=== PATIENT | male | born 1960 | race Caucasian/White ===

== ENCOUNTER 2022-06-18 07:22 | Inpatient (IN) | payer BC, SELFPAY ==
[2022-06-18] VITALS (16 sets, daily range): BP systolic 91–163; BP diastolic 61–99; PULSE 54–77; RESP 12–98; TEMP 36.3–36.9; O2SAT 19–100
--- NOTE | ~2022-06-18 | XR_ITS ---
XR chest 1V portable 06/18/2022 07:52 Indication: Chest pain and shortness of breath Procedure: AP portable chest Comparison: 08/21/2017 Findings: Chronic left basilar infiltrates. Stable cardiomediastinal silhouette allowing for techniqu e. No acute focal pneumonia, edema, pleural effusion or pneumothorax. Impression: 1: Stable chronic left basilar infiltrates, most likely atelectasis/scarring. Reviewed, dictated and finalized at location A. TIC PHYSIOTHERAPIST Impression: 1: Stable chronic left basilar infiltrates, most likely atelectasis/scarring.
--- NOTE | 2022-06-18 07:25 | ECG_ITS ---
Measurements Intervals [place] Rate: 51 P: 19 [place]: 157 QRS: -12 QRSD: 106 T: 27 QT: 391 QTc: 363 Interpretive Statements SINUS BRADYCARDIA WITH OCCASIONAL SUPRAVENTRICULAR PREMATURE COMPLEXES ST ELEVATION, CONSIDER INFERIOR INJURY ACUTE CO ABNORMAL ECG NO PREVIOUS ECG AVAILABLE FOR COMPARISON Electronically Signed On 06-18-2022 14:48:37 WIRE BOUND BOX MACHINE HELPER by Kyle Manzanares M.D.
[2022-06-18] MEDS: ASPIRIN 81 MG CHEWABLE TABLET 324 MG PO (07:51)
[2022-06-18] MEDS: MORPHINE SULFATE (*CRX) 4 MG/ML INJ (07:56)
[2022-06-18 07:59] LABS: Alanine Aminotransferase 24 U/L (6-50); Albumin Level 4.3 g/dL (3.5-5.1); Alkaline Phosphatase 64 U/L (38-126); Anion Gap 5 mmol/L (8-16); Aspartate Amino Transferase 25 U/L (17-59); Bilirubin,Total 1.1 mg/dL (0.2-1.3); Blood Urea Nitrogen 20 mg/dL (9-20); Calcium 8.5 mg/dL (8.4-10.2); Carbon Dioxide 28 mmol/L (22-30); Chloride 108 mmol/L (98-107); Estimated CRCL calculation 92 ml/min; Estimated Glomerular Filt Rate > 60; Glucose 140 mg/dL (65-110); Potassium 3.8 mmol/L (3.4-5.0); Sodium 141 mmol/L (137-145)
[2022-06-18 08:02] LABS: Prothrombin Time 12.3 Seconds (11.1-14.7)
[2022-06-18 08:07] LABS: Lipase 146 U/L (23-300)
[2022-06-18 08:11] LABS: Troponin I 0.122 ng/mL (0.000-0.034)
[2022-06-18 08:14] LABS: Basophils Percent Auto 0.5 % (0.2-1.2); Eosinophils Absolute Auto 0.3 K/mm3 (0-0.3); Hemoglobin 14.8 g/dL (14.0-18.0); Immature Granulocyte Absolute 0.03 K/mm3 (0.00-0.031); Immature Granulocyte Percent A 0.4 % (0-0.5); Lymphocytes Absolute Auto 3.26 K/mm3 (0.9-3.2); Lymphocytes Percent Auto 39.7 % (18.3-44.2); Mean Corpuscular HGB Conc 33.6 g/dl (32-36); Mean Corpuscular Hemoglobin 31.5 pg (26-34); Mean Corpuscular Volume 93.6 fl (80-100); Mean Platelet Volume 9.8 fl (7.4-10.4); Monocytes Absolute Auto 0.7 K/mm3 (0.1-0.6); Monocytes Percent Auto 8.2 % (2.6-8.5); Neutrophils Absolute Auto 3.9 K/mm3 (1.3-6.7); Neutrophils Percent Auto 47.2 % (45.5-73.1); Platelet Count Result 227 k/mm3 (150-375); Red Cell Distribution Width 13.5 % (11.5-14.5); White Blood Count 8.2 K/mm3 (4.5-10.0)
--- NOTE | 2022-06-18 08:23 | ED.CHESTPAIN ---
HPI - Chest Pain General Chief Complaint: Chest Pain Stated Complaint: chest pressure, difficulty breathing Time Seen by Provider: 06/18/22 07:27 History of Present Illness HPI narrative: Patient is a 61-year-old male who presents ER with chest pain. Woke him up at 6:45 AM. Pressure and stabbing center of his chest. No radiation to the shoulder or jaw. Mild shortness of breath. No diaphoresis. Has no nausea or vomiting. No history of [place]/hypertension/diabetes. Denies fevers or chills or sweats. Reports he noticed some exertional fatigue 2 days ago but otherwise has not been having chest pain. EKG in triage shows acute STEMI. Related Data Home Medications Medication Instructions Recorded Confirmed fexofenadine 60 mg-pseudoephedrine tablet PO 06/18/22 ER 120 mg tablet,ext.release,12 hr (Amada-D 12 Hour) Allergies Allergy/AdvReac Type Severity Reaction Status Date / Time levofloxacin [From Levaquin] Allergy Rash Verified 06/18/22 07:55 Sulfa (Sulfonamide Allergy Rash Verified 06/18/22 07:55 Antibiotics) Review of Systems Review of Systems: All systems reviewed & are unremarkable except as noted in HPI and below Constitutional: Constitutional: Denies chills, Denies fatigue and Denies fever(s) ENT: Denies nasal congestion and Denies sore throat Cardiovascular: Cardiovascular: Reports chest pain, Denies rapid heart rate and Denies radiating jaw, neck or arm pain Respiratory: Respiratory: Denies cough, Reports dyspnea and Denies wheezing Gastrointestinal: Gastrointestinal: Denies abdominal pain, Denies nausea and Denies vomiting PMFSH Past Medical History Medical History (Updated 06/18/22 @ 08:34 by Mehran Thapa MD) Healthy adult male Surgical History Surgical History (Updated 06/18/22 @ 08:34 by Mehran Thapa MD) No pertinent past surgical history Exam Narrative: GENERAL: Well-appearing, well-nourished, and in no acute distress. HEAD: Normocephalic, atraumatic. ENT: Mucous membranes moist. CHEST: Clear to auscultation. No respiratory distress. HEART: Bradycardic and regular. Normal peripheral pulses. ABDOMEN: Soft, nontender, nondistended. EXTREMITIES: Normal range of motion. No edema. SKIN: Warm, dry, no rash. NEURO: Alert and oriented x3. PSYCH: Normal mood and affect. Course Course Emergency Course: 0745: STEMI activated. I spoke with Dr. Arauz who is on his way to take care of the patient. He does not wish for the patient to receive Brilinta. Patient will receive oral aspirin and IV heparin. I have also contacted the patient's to inform her of the diagnosis and treatment plan. 0828: Cardiac cath team has arrived and taken patient to the cath suite. Patient with mild improvement of discomfort with morphine 2 mg IV. Vital Signs Vital signs: Vital Signs Temperature 97.4 F L 06/18/22 07:27 Pulse Rate 57 L 06/18/22 07:27 Respiratory Rate 19 06/18/22 07:27 Blood Pressure 151/91 H 06/18/22 07:27 Pulse Oximetry 100 06/18/22 07:27 Oxygen Delivery Room Air 06/18/22 07:27 Temperature 97.4 F L 06/18/22 07:27 Pulse Rate 57 L 06/18/22 08:22 Respiratory Rate 17 06/18/22 08:22 Blood Pressure 142/99 H 06/18/22 08:22 Pulse Oximetry 100 06/18/22 08:22 Oxygen Delivery Room Air 06/18/22 07:27 MDM - Chest Pain Lab Data 06/18/22 07:41 06/18/22 07:41 Labs: Lab Results 06/18/22 06/18/22 06/18/22 Range/Units 07:41 07:41 07:41 WBC 8.2 (4.5-10.0) K/mm3 RBC 4.70 (4.6-6.20) M/mm3 Hgb 14.8 (14.0-18.0) g/dL Hct 44.0 (42.0-52.0) % MCV 93.6 (80-100) fl MCH 31.5 (26-34) pg MCHC 33.6 (32-36) g/dl RDW 13.5 (11.5-14.5) % Plt Count 227 (150-375) k/mm3 MPV 9.8 (7.4-10.4) fl Immature Gran % (Auto) 0.4 (0-0.5) % Neut % (Auto) 47.2 (45.5-73.1) % Lymph % (Auto) 39.7 (18.3-44.2) % [place] % (Auto) 8.2 (2.6-8.5) % Eos % (Auto) 4.0 (0
--- NOTE | 2022-06-18 08:25 | WPDMODSED ---
Moderate Sedation Note-Pt Data Patient Data Diagnosis: Inferior STEMI Present Complaint: chest pain Procedure to be performed/Plan: cardiac catheterization with stenting Allergies Allergy/AdvReac Type Severity Reaction Status Date / Time levofloxacin [From Levaquin] Allergy Rash Verified 06/18/22 07:55 Sulfa (Sulfonamide Allergy Rash Verified 06/18/22 07:55 Antibiotics) Home Medications Medication Instructions Recorded Confirmed Type fexofenadine 60 mg-pseudoephedrine tablet PO 06/18/22 History ER 120 mg tablet,ext.release,12 hr (Amada-D 12 Hour) Sedation/Anesthesia: No previous sedation/anesthesia problems (including family history). Mod Sed Physical Exam Physical Exam Pre Procedural Exam: Normal: Appearance, Eyes, Ears, Nose, Neck, Throat, Airway, Lungs, Heart Size, Heart Rate, Heart Rhythm, Neuro Exam, Abdomen, Liver, Kidneys, Spleen, Breasts, Genitalia, Extremities and Skin Hours since solid foods: 8 Hours since liquid intake: 8 Mallampati Classification: class 1 Internal Medicine - PN: Obj Da Vital Signs Vital Signs: Vital Signs - 24 hr 06/18/22 07:27 06/18/22 07:56 06/18/22 07:56 Temperature 36.3 C L Pulse Rate 57 L 65 61 Respiratory Rate 19 19 Blood Pressure 151/91 H 154/94 H Pulse Oximetry 100 100 Oxygen Delivery Room Air 06/18/22 08:22 Temperature Pulse Rate 57 L Respiratory Rate 17 Blood Pressure 142/99 H Pulse Oximetry 100 Oxygen Delivery Meds/Results Radiology Results: ITS Impressions Chest X-Ray 06/18/22 07:57 Impression: 1: Stable chronic left basilar infiltrates, most likely atelectasis/scarring. Labs 06/18/22 07:41 06/18/22 07:41 Labs: Laboratory Results - last 24 hr 06/18/22 06/18/22 06/18/22 07:41 07:41 07:41 WBC 8.2 RBC 4.70 Hgb 14.8 Hct 44.0 MCV 93.6 MCH 31.5 MCHC 33.6 RDW 13.5 Plt Count 227 MPV 9.8 Immature Gran % (Auto) 0.4 Neut % (Auto) 47.2 Lymph % (Auto) 39.7 [place] % (Auto) 8.2 Eos % (Auto) 4.0 Baso % (Auto) 0.5 Lymph # (Auto) 3.26 H [place] # (Auto) 0.7 H Eos # (Auto) 0.3 Baso # (Auto) 0.0 Abs Immat Gran (auto) 0.03 Absolute Neuts (auto) 3.9 Absolute Nucleated RBC 0.0 Nucleated RBC % 0.0 PT 12.3 INR 1.0 APTT 24.0 Sodium 141 Potassium 3.8 Chloride 108 H Carbon Dioxide 28 Anion Gap 5 L BUN 20 Creatinine 0.80 Estim Creat Clear Calc 92 Estimated GFR > 60 Glucose 140 H Calcium 8.5 Total Bilirubin 1.1 AST 25 ALT 24 Alkaline Phosphatase 64 Troponin I 0.122 H* Total Protein 7.0 Albumin 4.3 Lipase 146 ASA Classification/Sedation ASA Classification/Sedation ASA Class: I Emergent: No Risks: Risks, benefits and alternatives explained and patient/family accepted plan for sedation. Patient re-evaluated immediately prior to sedation.
--- NOTE | 2022-06-18 08:26 | WPDHPUPDATE1 ---
History and Physical Update Update Date/Time: 06/18/22 08:26 History and Physical has been reviewed, including an updated exam of the patient. There are NO changes in the patient's condition. Risks, benefits, and alternatives have been discussed and questions answered. Patient agrees to proceed with procedure.
--- NOTE | 2022-06-18 08:26 | PM.IMHP ---
H&P: HPI History of Present Illness Date/Time: date of kckqowh75/19/23 08:26 Chief Complaint: chest pain Narrative: this 61 year patient significant past medical history except that his dad had myocardial infarction at the same age primary started about 645 this morning have a central chest heaviness. mention that was having shortness of breath and some chest pressure then intermittent increasing chest pressure Sunday but this morning was constant . he does not smoke cigarettes. he drinks alcohol occasions. EKG showed ST-elevation inferior leads with reciprocal changes in leads 1 and aVL. His initial troponin 0.12 to. Electrolytes and hemoglobin normal. Review of Systems Review of Systems: All systems reviewed & are unremarkable except as noted in HPI and below Constitutional: Constitutional: Denies chills, Denies fatigue, Denies fever(s), Denies headache(s) and Denies snoring Eyes: Eyes: Denies eye discharge and Denies loss of vision ENT: Denies dizziness, Denies headache(s), Denies nasal discharge and Denies sore throat Cardiovascular: Cardiovascular: Reports as per HPI, Reports chest pain, Denies syncope, Denies rapid heart rate, Denies leg edema, Reports dyspnea, Reports dyspnea on exertion, Denies orthopnea and Denies paroxysmal nocturnal dyspnea Respiratory: Respiratory: Denies chest congestion, Denies cough, Reports dyspnea, Reports dyspnea on exertion, Denies snoring and Denies wheezing Gastrointestinal: Gastrointestinal: Denies abdominal pain, Denies diarrhea, Denies nausea and Denies vomiting Genitourinary: Genitourinary: Denies hematuria, Denies dysuria, Denies flank pain and Denies urinary frequency Musculoskeletal: Musculoskeletal: Denies myalgias, Denies arthralgias and Denies joint swelling Neurologic: Denies Abnormal speech present, Denies dizziness, Denies syncope, Denies headache(s), Denies focal weakness and Denies loss of vision Psychiatric: Psychiatric: Denies anxiety and Denies depression Endocrine: Endocrine: Denies cold intolerance, Denies fatigue and Denies heat intolerance Hematologic/Lymphatic: Hematologic/Lymphatic: Denies easy bleeding and Denies easy bruising Allergic/Immunologic: Allergic/Immunologic: Denies urticaria and Denies wheezing Meds Home Medications and Allergies Home Medications Medication Instructions Recorded Confirmed Type fexofenadine 60 mg-pseudoephedrine tablet PO 06/18/22 History ER 120 mg tablet,ext.release,12 hr (Amada-D 12 Hour) Allergies Allergy/AdvReac Type Severity Reaction Status Date / Time levofloxacin [From Levaquin] Allergy Rash Verified 06/18/22 07:55 Sulfa (Sulfonamide Allergy Rash Verified 06/18/22 07:55 Antibiotics) Vital Signs Vital Signs - 24 hr 06/18/22 07:27 06/18/22 07:56 06/18/22 07:56 Temperature 36.3 C L Pulse Rate 57 L 65 61 Respiratory Rate 19 19 Blood Pressure 151/91 H 154/94 H Pulse Oximetry 100 100 Oxygen Delivery Room Air 06/18/22 08:22 Temperature Pulse Rate 57 L Respiratory Rate 17 Blood Pressure 142/99 H Pulse Oximetry 100 Oxygen Delivery Exam Const: General: cooperative, healthy appearing, comfortable, no acute distress, well developed and well nourished Nutritional Appearance: well nourished Orientation/consciousness: patient oriented x3 HENMT: Head: normal to inspection, normocephalic and atraumatic Ears: hearing grossly normal bilaterally and external ears normal Face/Nose/Sinus: Normal external nose present, Normal nares present, normal facial exam and No erythema Face and sinus: normal facial exam and no erythema Mouth: Yes moist mucous membranes and No lip abnormal Throat: uvula midline Eyes: General: appearance normal, both eyes and all related structures Eyelids: eyelids normal Sclera: sclerae normal Neck: Neck: normal visual inspection and full ROM Thyroid: thyroid normal Carotids: no bruits Lymphatic: lymphedema not noted Chest: Chest palpat
--- NOTE | 2022-06-18 08:27 | WPDCARDPROC ---
Cardiac Cath Procedure Note Date of procedure:: 06/18/22 Performing physician:: Sonia Arauz MD Indication:: inferior STEMI Brief clinical history:: this 61 year patient significant past medical history except that his dad had myocardial infarction at the same age primary started about 645 this morning have a central chest heaviness. mention that was having shortness of breath and some chest pressure then intermittent increasing chest pressure Sunday but this morning was constant . he does not smoke cigarettes. he drinks alcohol occasions. EKG shows inferior ST elevation with reciprocal changes in lead 1 and aVL. Procedure Procedure performed:: 1-Moderate sedation that started at8:39 a.m. and ended at 913 with total duration 34 minutes using 1mg of Versed and 25mcg fentanyl. The registered nurse was danuta sage. 2-Selective left and right coronary angiogram. 3-Left heart catheterization with measurement of LVEDP and measurement of gradient across aortic valve. 4- LV angiogram. 5- Aspiration thrombectomy of the right coronary artery using penumbra catheter. 6- deployment of a drug-eluting stent Xience 4 x 23 cup in proximal RCA. Deployment under nominal pressure for 30 seconds. 4-Right common femoral arterial angiogram. 5-Deployment of 6 Israeli Angio-Seal. Sedation/Medication given:: Moderate sedation. Access site:: Right common femoral artery. Estimated blood loss:: 10cc Procedure note:: After informed consent patient was brought in to research laboratory manager with the was draped and prepped in usual manner. Moderate sedation was given and the right groin was infiltrated using 1% lidocaine. 6 Israeli sheath was obtained using micropuncture needle and the modified Seldinger technique. After that selective right coronary angiogram was done using JR4 guide catheter. Subsequently coronary luge wire was advanced to distal RCA and then penumbra catheter aspiration catheter was used. Subsequently balloon angioplasty done using 3.5 x 15 balloon with inflation under normal pressure for 25 seconds. Then deployed drug-eluting stent Xience 4 x 23 to cover proximal RCA under nominal pressure for 30 seconds. Selective left coronary angiogram was done using JL4 catheter with the tip of the catheter placed in the left main coronary artery. After that 5 Israeli pigtail catheter was advanced across the aortic valve into the left ventricle with measurement of LVEDP and measurement of gradient across aortic valve. LV angiogram was done as well.Right common femoral arterial angiogram was done. Findings:: 1- left coronary artery is a large artery that divides into large LAD, large circumflex artery. Left main Has diffuse 30%. 2- left anterior descending artery is a large artery that runs To the apex. Has diffuse minimal irregularities. In the mid segment medium size diagonal branch that has minimal irregularities. 3- leftcircumflex artery is a large artery Has minimal irregularities. In the mid segment large OM1 minimal irregularities. 4- right coronary artery is large artery and dominant and totally occluded proximally. TAM flow 0 before intervention and 3 after intervention. 5- LVEDP was 15 mm mercuryand no gradient across aortic valve. 6- LV angiogram shows ejection fraction 60% but inferior wall hypokinesis. There was some mitral regurgitation seen as well. 6- opening arterial pressure was 158/86 and closing pressure was 118/60 7- right femoral artery angiogram shows no significant disease in the right common femoral artery. Conclusion:: - totally occluded proximal RCA status post stenting using 4 x 23 drug-eluting stent. - other nonocclusive CAD as described above. Assessment and Plan Assessment and plan (1) Acute ST elevation myocardial infarction (STEMI) of inferior wall: Code(s): I21.19 - ST elevation (STEMI) myocardial infarction involving other coronary artery of inferior wall Status: Acute Plan - continue aspir
--- NOTE | 2022-06-18 09:43 | ECG_ITS ---
Measurements Intervals [place] Rate: 67 P: 51 [place]: 172 QRS: -28 QRSD: 104 T: -35 QT: 377 QTc: 398 Interpretive Statements SINUS RHYTHM INFERIOR MYOCARDIAL INFARCTION, PROBABLY RECENT NONSPECIFIC T-WAVE ABNORMALITY ANTEROLATERAL LEADS ABNORMAL ECG COMPARED TO ECG 06/18/2022 07:30:25 HEART RATE HAS INCREASED AND INFERIOR ST ELEVATIONS ARE NO LONGER APPRECIATED Electronically Signed On 06-18-2022 14:55:30 GARDEN MACHINERY MECHANIC by Kyle Manzanares M.D.
--- NOTE | 2022-06-18 10:00 | ADMGEN ---
This patient, Georges Correa, was admitted to Intensive Care Unit-5. Patient/family oriented to hospital policies and general routines including ID bracelet, bed and alarms, visiting hours, pain management, procedures, bathroom and other care routines, personal items, smoking policy, room service/diet, and visiting hours. Information on how to activate the Rapid Response Team has been discussed. Patient/Family are encouraged to report perceived risks to care and to ask questions if they do not understand what they are told or what they should do.
[2022-06-18] MEDS: SODIUM CHLORIDE 0.9% IV 1,000 ML 125 ML IV CONT (10:15)
--- NOTE | 2022-06-18 11:08 | WPDCNINT ---
Assessment and Plan Assessment and plan (1) Acute ST elevation myocardial infarction (STEMI) of inferior wall: Code(s): I21.19 - ST elevation (STEMI) myocardial infarction involving other coronary artery of inferior wall Status: Acute Assessment and Plan: 06/18/2022: Patient presented to the ER with chest pain 1 are prior to arrival. Central chest pressure with shortness of breath. No radiation to the jaw or arms, nausea, vomiting or diaphoresis. EKG in the ER showed ST elevations in inferior leads -patient was taken to the quality assurance qa lab technician where had a PTCA/PCI and found to have an occluded proximal RCA which was successfully stented with a drug-eluting stent x1. LVEDP was 15 mmHg and EF was 60% with hypokinesis of the inferior wall -cardiology following the patient -continue aspirin, Brilinta, statin -will check lipid panel in a.m. Plan DVT prophylaxis: Patient status post PTCA/PCI with stent placement Stress ulcer prophylaxis: Not indicated Nutrition: Heart healthy diet Code Status: Full code Critical Care Time Spent: 44 minutes Due to a high probability of clinically significant, life threatening deterioration, the patient required my highest level of preparedness to intervene emergently and I personally spent this critical care time directly and personally managing the patient. This critical care time included obtaining a history; examining the patient; pulse oximetry; ordering and review of studies; arranging urgent treatment with development of a management plan; evaluation of patient's response to treatment; frequent reassessment; and discussions with other providers. It was exclusive of separately billable procedures and treating other patients and teaching time. Please see Assessment and Plan section and the rest of the note for further information on patient assessment and treatment This dictation may have been done utilizing a voice recognition system. Attempts have been made to correct errors. However, there may be uncorrected grammatical, spelling, and recognitions errors present. Bricklayer Paving Brick Consult Note Consult date: 06/18/22 Reason for consult: STEMI status post THIERRY x1 to RCA HPI: Georges Correa is a 61 year old male with no past medical history except that his father had a myocardial infarction at about the same age as the patient, presented the ED on 06/18 11:00 p.m. with complains of chest heaviness that started 1 hour prior to his arrival to the ER. Chest pain was associated with shortness of breath. Pressure was stabbing in nature, center of the chest, no radiation to the shoulder or jaw, no nausea vomiting or diaphoresis. EKG in ER showed inferior ST-elevation CO, patient was taken emergently to the cardiac quality assurance qa lab technician where he was found to have totally occluded proximal RCA status post PCI TCA/PCI with THIERRY x1 to proximal RCA. There was other nonocclusive coronary artery disease. LVEDP was 15 mmHg, EF was 60% melena inferior wall hypokinesis. Patient was hypotensive in the quality assurance qa lab technician and was given IV fluids and a Mike-Synephrine. Post cardiac catheterization patient has been hemodynamically stable with adequate blood pressures. Patient was transferred to the ICU for further management Patient seen and examined upon arrival to the ICU, laying flat in bed, pleasant personality, denies any chest pain, shortness of breath, nausea, vomiting. Denies any tobacco illicit drug use, states he occasionally drinks alcohol. Review of Systems Review of Systems: All systems reviewed & are unremarkable except as noted in HPI and below PMFSH Past Medical History Medical History (Updated 06/18/22 @ 08:34 by Mehran Thapa MD) Healthy adult male Surgical History Surgical History (Updated 06/18/22 @ 08:34 by Mehran Thapa MD) No pertinent past surgical history Social History Social History Smoking status: Never smoker Alcohol intake: never Substan
[2022-06-18] MEDS: ATORVASTATIN 40 MG TABLET PO (16:55)
[2022-06-18] MEDS: TICAGRELOR 90 MG TABLET PO (20:31)
[2022-06-19] VITALS (22 sets, daily range): BP systolic 94–119; BP diastolic 42–93; PULSE 48–86; RESP 12–22; TEMP 35.9–36.7; O2SAT 95–100; BMI 30.3
[2022-06-19 03:51] LABS: Basophils Percent Auto 0.3 % (0.2-1.2); Eosinophils Absolute Auto 0.2 K/mm3 (0-0.3); Eosinophils Percent Auto 1.7 % (0-4.4); Hematocrit 40.2 % (42.0-52.0); Hemoglobin 13.4 g/dL (14.0-18.0); Immature Granulocyte Absolute 0.04 K/mm3 (0.00-0.031); Immature Granulocyte Percent A 0.4 % (0-0.5); Lymphocytes Absolute Auto 2.49 K/mm3 (0.9-3.2); Lymphocytes Percent Auto 25.9 % (18.3-44.2); Mean Corpuscular HGB Conc 33.3 g/dl (32-36); Mean Corpuscular Hemoglobin 31.2 pg (26-34); Mean Corpuscular Volume 93.5 fl (80-100); Mean Platelet Volume 9.4 fl (7.4-10.4); Monocytes Absolute Auto 0.9 K/mm3 (0.1-0.6); Monocytes Percent Auto 8.8 % (2.6-8.5); Neutrophils Absolute Auto 6.1 K/mm3 (1.3-6.7); Neutrophils Percent Auto 62.9 % (45.5-73.1); Platelet Count Result 193 k/mm3 (150-375); White Blood Count 9.6 K/mm3 (4.5-10.0)
[2022-06-19 04:03] LABS: Anion Gap 4 mmol/L (8-16); Blood Urea Nitrogen 20 mg/dL (9-20); Calcium 8.7 mg/dL (8.4-10.2); Carbon Dioxide 27 mmol/L (22-30); Chloride 106 mmol/L (98-107); Cholesterol 242 mg/dL (0-200); Estimated CRCL calculation 92 ml/min; Estimated Glomerular Filt Rate > 60; Glucose 105 mg/dL (65-110); HDL Direct 61 mg/dL; Magnesium 2.2 mg/dL (1.6-2.3); Phosphorus 2.9 mg/dL (2.5-4.5); Potassium 3.8 mmol/L (3.4-5.0); Sodium 137 mmol/L (137-145); Triglycerides 116 mg/dL (<150)
[2022-06-19 04:14] LABS: LDL Cholesterol Direct 121 mg/dL
[2022-06-19] MEDS: PERFLUTREN LIPID MICROSPHERES 1.5 ML VIAL DILUTED TO 10 ML TOTAL VOLUME IV PUSH (09:00)
--- NOTE | 2022-06-19 09:20 | WPDINTPN ---
Progress Note: A&P Assessment and Plan (1) Acute ST elevation myocardial infarction (STEMI) of inferior wall: Code(s): I21.19 - ST elevation (STEMI) myocardial infarction involving other coronary artery of inferior wall Status: Acute Assessment and Plan: 06/18/2022: Patient presented to the ER with chest pain 1 are prior to arrival. Central chest pressure with shortness of breath. No radiation to the jaw or arms, nausea, vomiting or diaphoresis. EKG in the ER showed ST elevations in inferior leads -patient was taken to the laborer cook house where had a PTCA/PCI and found to have an occluded proximal RCA which was successfully stented with a drug-eluting stent x1. LVEDP was 15 mmHg and EF was 60% with hypokinesis of the inferior wall -cardiology following the patient -continue aspirin, Brilinta, statin (2) Hypercholesterolemia: Code(s): E78.00 - Pure hypercholesterolemia, unspecified Status: Acute Assessment and Plan: Lipid profile showed elevated cholesterol, normal triglycerides and HDL -continue statin as above Plan DVT prophylaxis: Patient status post PTCA/PCI with stent placement Stress ulcer prophylaxis: Not indicated Nutrition: Heart healthy diet Code Status: Full code Critical Care Time Spent: 31minutes Patient may transfer out of the ICU Due to a high probability of clinically significant, life threatening deterioration, the patient required my highest level of preparedness to intervene emergently and I personally spent this critical care time directly and personally managing the patient. This critical care time included obtaining a history; examining the patient; pulse oximetry; ordering and review of studies; arranging urgent treatment with development of a management plan; evaluation of patient's response to treatment; frequent reassessment; and discussions with other providers. It was exclusive of separately billable procedures and treating other patients and teaching time. Please see Assessment and Plan section and the rest of the note for further information on patient assessment and treatment This dictation may have been done utilizing a voice recognition system. Attempts have been made to correct errors. However, there may be uncorrected grammatical, spelling, and recognitions errors present. Subjective Date/time seen: 06/19/22 09:20 Interval history: Reason for consult: STEMI status post THIERRY x1 to RCA 06/19/2022: Patient seen and examined the ICU,, alert, oriented x3. Denies any chest pain, shortness of breath, nausea, vomiting, abdominal pain at this time. According the bedside RN overnight patient did get a bradycardic and hypoxic likely secondary to sleep apnea, as when the nurse will go in the room he will wake up and his O2 sats would improve and his heart rate also improved. Urine output has been low, patient is afebrile and currently hemodynamically stable Review of Systems Review of Systems: All systems reviewed & are unremarkable except as noted in HPI and below Exam Narrative: General: Pleasant patient in no acute distress HEENT:? Pupils are equal and reactive, sclera is clear, moist oral mucosa Neck:? Supple, no lymphadenopathy Respiratory:? Clear to auscultation bilaterally, no wheezing, adequate air entry, on room air Cardiac:? S1-S2 normal, regular rate and rhythm Abdomen:? Soft, nontender, nondistended, normoactive bowel sounds Extremities:? No edema, right groin site with no evidence of ecchymosis or hematoma, palpable pedal pulses Neuro:? Patient is awake, alert, oriented x3, nonfocal, able to answer questions appropriately Skin:? No skin lesions noted Psych:? Normal mentation and affect Objective Data Vital Signs Vital Signs: Vital Signs - 24 hr 06/18/22 12:00 06/18/22 10:04 06/18/22 10:15 Temperature 98 F Pulse Rate 76 72 Pulse Rate [Right Pedal (Dorsalis Pedis) Palpation] Respiratory Rate 16 16 Blood Pressure 137/84 137/84 Pulse Oximetry
--- NOTE | 2022-06-19 09:29 | PM.PNCARD ---
Progress Note: A&P Assessment and Plan (1) Acute ST elevation myocardial infarction (STEMI) of inferior wall: Code(s): I21.19 - ST elevation (STEMI) myocardial infarction involving other coronary artery of inferior wall Status: Acute Assessment and Plan: Presented to the emergency department with chief complaint of chest pain. EKG with evidence of acute injury with ST elevations in leads II, III, and aVF with reciprocal changes in aVL. He was taken emergently to the director labor standards and was found to have a totally occluded proximal RCA status post stenting using 4 x 23 drug-eluting stent. He also has 30% nonobstructive disease in the left main. DAPT with ASA indefinitely, Brilinta for one year Continue statin Will hold off on beta gwen for now since he had some bradycardia last night Add losartan Continue aggressive risk factor modification for CAD OK to downgrade to IMU Subjective Date/time seen: 06/19/22 09:29 Cardiology follow up for STEMI Feeling well this morning and has no complaints. Denies any chest pain or shortness of breath. Did have 5 beats NSVT on telemetry this morning. Also had some mild bradycardia and low O2 sats overnight with noted episodes of apnea. Review of Systems Review of Systems: All systems reviewed & are unremarkable except as noted in HPI and below Constitutional: Constitutional: Denies chills, Denies fatigue, Denies fever(s), Denies headache(s) and Denies snoring Eyes: Eyes: Denies eye discharge and Denies loss of vision ENT: Denies dizziness, Denies headache(s), Denies nasal discharge and Denies sore throat Cardiovascular: Cardiovascular: Reports as per HPI, Reports chest pain, Denies syncope, Denies rapid heart rate, Denies leg edema, Reports dyspnea, Reports dyspnea on exertion, Denies orthopnea and Denies paroxysmal nocturnal dyspnea Respiratory: Respiratory: Denies chest congestion, Denies cough, Reports dyspnea, Reports dyspnea on exertion, Denies snoring and Denies wheezing Gastrointestinal: Gastrointestinal: Denies abdominal pain, Denies diarrhea, Denies nausea and Denies vomiting Genitourinary: Genitourinary: Denies hematuria, Denies dysuria, Denies flank pain and Denies urinary frequency Musculoskeletal: Musculoskeletal: Denies myalgias, Denies arthralgias and Denies joint swelling Neurologic: Denies Abnormal speech present, Denies dizziness, Denies syncope, Denies headache(s), Denies focal weakness and Denies loss of vision Psychiatric: Psychiatric: Denies anxiety and Denies depression Endocrine: Endocrine: Denies cold intolerance, Denies fatigue and Denies heat intolerance Hematologic/Lymphatic: Hematologic/Lymphatic: Denies easy bleeding and Denies easy bruising Allergic/Immunologic: Allergic/Immunologic: Denies urticaria and Denies wheezing Exam Const: General: cooperative, healthy appearing, comfortable, no acute distress, well developed and well nourished Nutritional Appearance: well nourished Orientation/consciousness: patient oriented x3 HENMT: Head: normal to inspection, normocephalic and atraumatic Ears: hearing grossly normal bilaterally and external ears normal Face and sinus: normal facial exam and no erythema Mouth: Yes moist mucous membranes Eyes: General: appearance normal, both eyes and all related structures Eyelids: eyelids normal Sclera: sclerae normal Neck: Neck: normal visual inspection and full ROM Thyroid: thyroid normal Carotids: no bruits Lymphatic: lymphedema not noted Chest: Chest palpation & inspection: normal inspection of the chest and normal palpation of entire chest wall Resp: Effort & Inspection: normal respiratory effort and not labored Auscultation: clear to auscultation bilaterally, no crackles, no rales and no wheezes Cardio: Jugular venous distension: no JVD Rate: regular rate Rhythm: regular rhythm Heart sounds: S1 normal heart sound present, S2 normal heart sound present, no click, no gallops, no murmurs and no
--- NOTE | 2022-06-19 09:43 | ECHO_ITS ---
Patient Info Name: Georges Correa Age: 61 years : 1960 Gender: Male Ht: 68 in Wt: 207 lbs BSA: 2.15 m2 HR: 57 bpm BP: 107 / 65 mmHg Heart Rhythm: Sinus Rhythm Technical Quality: Fair Exam Date: 06/19/2022 8:32 AM Exam Location: [facility] Pulmonary Patient Status: Inpatient Admit Date: 06/18/2022 Staff Ordering Physician: Sonia Arauz MD Eyelet Row Marker: Carlie Martin RDCS Attending Provider: Sonia Arauz MD Referring Physician: Regla MEDRANO; Exam Type: CA echo dop color flow w con Study Info Indications - STEMI Complete two-dimensional, color flow and Doppler transthoracic echocardiogram is performed with contrast to opacify the left ventricle and to improve the deliniation of the left ventricle endocardial borders. Contrast/Agitated Saline Contrast/Ag. Saline: Definity Amount: 3.00 ml Administered By: Carlie Martin RDCS Existing IV Access: Yes IV Access Condition: patent with no signs of infiltration Summary 1. Definity contrast injected to improve visualization. 2. Overall normal LV size and systolic function with posterior and lateral hypokinesia. 3. No significant valvular dysfunction. 4. Left atrial enlarged. Left Ventricle Left ventricular chamber dimension is normal. Left ventricular systolic function is normal, estimated at 50-55%. The left ventricular diastolic function is normal. Right Ventricle Right ventricular chamber dimension is normal. Left Atria Left atrial chamber dimension is mildly enlarged. Right Atria Right atrial chamber dimension is normal. Aortic Valve The aortic valve is normal. Pulmonic Valve The pulmonic valve is not well visualized. Mitral Valve The mitral valve has normal leaflets. Tricuspid Valve The tricuspid valve leaflets are normal. Pericardium/Pleural The pericardium appears normal. Aorta The aortic root size at the sinus of Valsalva is normal. Left Ventricular Outflow Tract Name Value Normal LVOT 2D LVOT Diameter 2.02 cm LVOT Doppler LVOT Peak Gradient 3 mmHg LVOT Mean Gradient 1 mmHg LVOT VTI 16.43 cm LVOT VTI/AV VTI Ratio 0.51 LVOT Stroke Volume 52.57 ml LVOT CO 3.96 l/min LVOT CI 1.84 L/min/m2 Pulmonic Valve Name Value Normal RVOT Doppler RVOT Peak Gradient 2 mmHg PV Doppler PV Peak Gradient 6 mmHg Mitral Valve Name Value Normal
--- NOTE | 2022-06-19 10:37 | IVDEFINITY ---
Prior to administration of IV Definity the patient was educated on the risks and benefits of the imaging enhancing agent including potential adverse side effects. The patient verbalized understanding. Allergies were verified. No exclusion criteria were identified and at least one of the following inclusion criteria were met: 1) physician request, 2) patient technically difficult to image (per the [place] [employer] guidelines of two or more segments not discernable within the apical view), or 3) questionable left ventricular function. ?
[2022-06-19] MEDS: TICAGRELOR 90 MG TABLET PO ×2 (11:33→20:42)
[2022-06-19] MEDS: ASPIRIN 81 MG CHEWABLE TABLET PO (11:33)
[2022-06-19] MEDS: ATORVASTATIN 40 MG TABLET PO (11:34)
[2022-06-19] MEDS: LORATADINE 10 MG TABLET PO (11:34)
--- NOTE | 2022-06-19 14:31 | PC.NURSE ---
This patient, Georges Correa, was transferred to [facility] on 06/19/22 at 1422. Personal belongings sent with patient. Report given to Roberto. Appropriate documentation sent with patient.
[2022-06-20] VITALS: PULSE 63; RESP 18; O2SAT 97
[2022-06-20 02:00] VITALS: PULSE 68
[2022-06-20 04:00] VITALS: BP 110/64; PULSE 63; PULSE 70; PULSE 71; RESP 18; TEMP 36.7; O2SAT 99
[2022-06-20 06:00] VITALS: PULSE 62
[2022-06-20 08:00] VITALS: PULSE 63; PULSE 70; PULSE 71; RESP 18; O2SAT 99
[2022-06-20 08:10] VITALS: BP 105/75; PULSE 71; RESP 20; TEMP 36.2; O2SAT 97
[2022-06-20] MEDS: ASPIRIN 81 MG CHEWABLE TABLET PO (08:23)
[2022-06-20] MEDS: LORATADINE 10 MG TABLET PO (08:23)
[2022-06-20] MEDS: TICAGRELOR 90 MG TABLET PO (08:23)
[2022-06-20] MEDS: ATORVASTATIN 40 MG TABLET PO (08:23)
--- NOTE | 2022-06-20 08:49 | PM.DS ---
DS: Admitting Diagnosis Discharge Date 06/20/22 Admitting Diagnosis chest pain DS: Discharge Diagnosis Discharge Diagnosis (1) Acute ST elevation myocardial infarction (STEMI) of inferior wall: Code(s): I21.19 - ST elevation (STEMI) myocardial infarction involving other coronary artery of inferior wall Status: Acute Assessment and Plan: Presented to the emergency department with chief complaint of chest pain. EKG with evidence of acute injury with ST elevations in leads II, III, and aVF with reciprocal changes in aVL. He was taken emergently to the laboratory immunologist and was found to have a totally occluded proximal RCA status post stenting using 4 x 23 drug-eluting stent. He also has 30% nonobstructive disease in the left main. DAPT with ASA indefinitely, Brilinta for one year Continue statin Low dose beta gwen (had some mild bradycardia, dose can be adjusted as outpatient if HR increases) Add losartan Continue aggressive risk factor modification for CAD Cardiac rehab referral OK for discharge home today DS: Summary Hospital Course Hospital Course: Presented to the emergency department with chief complaint of chest pain. EKG with evidence of acute injury with ST elevations in leads II, III, and aVF with reciprocal changes in aVL. He was taken emergently to the laboratory immunologist and was found to have a totally occluded proximal RCA status post stenting using 4 x 23 drug-eluting stent. He also has 30% nonobstructive disease in the left main. Recovered as expected post-cath with no complications. Stable and appropriate for discharge home from the hospital today. Time Spent with Patient Time attestation: Total time spent providing and/or coordinating discharge services: Exam Const: General: cooperative, healthy appearing, comfortable, no acute distress, well developed and well nourished Nutritional Appearance: well nourished Orientation/consciousness: patient oriented x3 HENMT: Head: normal to inspection, normocephalic and atraumatic Ears: hearing grossly normal bilaterally and external ears normal Face/Nose/Sinus: Normal external nose present, Normal nares present, normal facial exam and No erythema Face and sinus: normal facial exam and no erythema Mouth: Yes moist mucous membranes and No lip abnormal Throat: uvula midline Eyes: General: appearance normal, both eyes and all related structures Eyelids: eyelids normal Sclera: sclerae normal Neck: Neck: normal visual inspection and full ROM Thyroid: thyroid normal Carotids: no bruits Lymphatic: lymphedema not noted Chest: Chest palpation & inspection: normal inspection of the chest and normal palpation of entire chest wall Resp: Effort & Inspection: normal respiratory effort and not labored Auscultation: clear to auscultation bilaterally, no crackles, no rales and no wheezes Cardio: Jugular venous distension: no JVD Rate: regular rate Rhythm: regular rhythm Heart sounds: S1 normal heart sound present, S2 normal heart sound present, no click, no gallops, no murmurs and no rubs Bruits: no carotid bruits GI: Inspection: normal to inspection and non-distended Auscultation: normal bowel sounds Rectal Exam: deferred : General: No CVA tenderness and Yes no CVA tenderness Back/Spine/Pelvis: Back: no CVA tenderness, No CVA tenderness and No erythema Cervical Spine: cervical ROM normal Skin: General skin exam: normal color, no erythema and no pallor Lesions: no lesions Rashes: no rashes Other: R groin arterial insertion site free from bleeding, hematoma, bruit Neuro: General: patient oriented x3 and moves all extremities Cranial nerves: Yes facial symmetry Speech: normal speech and No Abnormal speech present Motor exam (neuro): 5/5 motor strength present throughout Extrem: General: normal to inspection and full ROM Psych: Appearance: grossly normal, well kempt and disheveled Affect: normal affect Discharge Plan Discharge Consulting providers: Demi
[2022-06-20] MEDS: METOPROLOL SUCCINATE EXT REL 12.5 MG TABCR PO (10:43)
== END 2022-06-20 10:53 | disposition home or self-care (01) | DRG 247 ==
LOC: ANHED 07:44 → ANHCATHLAB 07:49 → ANHICU 10:28 → ANHIMU 06-19 14:31
PROVIDERS: Admitting Provider Internal Medicine Cardiovascular Disease; Emergency Provider Emergency Medicine; PCP Physician Assistant; Visit Provider Nurse Practitioner
PROC: 4A023N7 Measurement of Cardiac Sampling and Pressure, Left Heart, Percutaneous Approach (ICD-10-PCS; CPT 93452; principal; 2022-06-18 08:05)
PROC: 027034Z Dilation of Coronary Artery, One Artery with Drug-eluting Intraluminal Device, Percutaneous Approach (ICD-10-PCS; 2022-06-18 08:05)
PROC: 027034Z Dilation of Coronary Artery, One Artery with Drug-eluting Intraluminal Device, Percutaneous Approach (ICD-10-PCS; 2022-06-18 08:05)
DX: I21.11 ST elevation (STEMI) myocardial infarction involving right coronary artery (principal); I25.10 Atherosclerotic heart disease of native coronary artery without angina pectoris; E78.00 Pure hypercholesterolemia, unspecified
CPT/HCPCS: 36415; 71045; 80048; 80053; 80061; 83690; 83735; 84100; 84484; 85025; 85610; 85730; 93005; 93458; 94762; 99291; A9270; C1725; C1757; C1760; C1769; C1874; C1887; C1894; C8929; C9606; G0269; J0461; J0583; J1327; J1644; J2250; J2270; J2370; J3010; J7030; Q9957